=== PATIENT | female | born 1985 | race Caucasian/White ===

== ENCOUNTER 2022-01-06 10:41 | Day surgery (SDC) | payer BC ==
[2022-01-06] MEDS ORDERED: BUPIVACAINE 0.5% VIAL IJ ONE (10:42)
[2022-01-06] MEDS ORDERED: Depo-Medrol 40 MG/ML IM ONE (10:42)
[2022-01-06] MEDS ORDERED: Lactated Ringers 1,000 ML IV ONE ×2 (12:04→13:15)
[2022-01-06] MEDS ORDERED: DIPRIVAN 200 MG/20 ML IV ONE (12:31)
--- NOTE | 2022-01-06 14:04 | XRAY ---
Indication: Left SI joint injection. Intraoperative fluoroscopy provided for 26 seconds. 2 digital spot image submitted for interpretation demonstrates posterior needle tip projecting over the inferior left SI joint. Correlate with intraoperative findings/report.
--- NOTE | 2022-01-06 14:39 | XRAY ---
26 seconds fluoroscopy time in surgery for injection of the left SI joint.
== END 2022-01-06 12:55 | disposition home or self-care (01) ==
LOC: SDC-PAIN 10:41
PROVIDERS: ATTEND Psychiatry & Neurology Pain Medicine
DX: M46.1 Sacroiliitis, not elsewhere classified (principal); Z79.899 Other long term (current) drug therapy
CPT/HCPCS: 27096; 72100; 77002; J1030; J2704; G0260

== ENCOUNTER 2022-01-27 14:06 | Day surgery (SDC) | payer BC ==
[2022-01-27] MEDS ORDERED: Xylocaine 1% Vial 30 ML PF IJ ONE (14:07)
[2022-01-27] MEDS ORDERED: Depo-Medrol 40 MG/ML IM ONE (14:07)
[2022-01-27] MEDS ORDERED: Decadron 4 MG INJ IV ONE (14:07)
[2022-01-27] MEDS ORDERED: Sodium Chloride 0.9(Preservative Free) 10 ML IJ ONE (14:07)
[2022-01-27] MEDS ORDERED: Lactated Ringers 1,000 ML IV ONE (15:52)
[2022-01-27] MEDS ORDERED: DIPRIVAN 200 MG/20 ML IV ONE (16:18)
--- NOTE | 2022-01-27 19:05 | XRAY ---
Indication: Left L4-S1 transforaminal HALLIE. Intraoperative fluoroscopy provided for 26 seconds. 3 digital spot image submitted for interpretation demonstrates posterior needle tips projecting over the expected left L4 and L5 nerve roots. Small amount of contrast injected for needle tip placement. Correlate with intraoperative findings/report.
--- NOTE | 2022-01-27 19:06 | XRAY ---
Indication: Left piriformis injection. Intraoperative fluoroscopy provided for 6 seconds. Single digital spot image submitted for interpretation demonstrates posterior needle tip projecting over the left piriformis muscle. Small amount of contrast injected for needle tip placement. Correlate with intraoperative findings/report.
--- NOTE | 2022-01-28 08:46 | XRAY ---
6 seconds of fluoroscopy was used in surgery for a left piriformis injection.
--- NOTE | 2022-01-28 08:47 | XRAY ---
26 seconds of fluoroscopy was used in surgery for a left L4-S1 transforaminal HALLIE.
== END 2022-01-27 16:50 | disposition home or self-care (01) ==
LOC: SDC-PAIN 14:06
PROVIDERS: ATTEND Psychiatry & Neurology Pain Medicine
DX: M54.16 Radiculopathy, lumbar region (principal); M79.18 Myalgia, other site; Z79.899 Other long term (current) drug therapy
CPT/HCPCS: 20552; 64483; 64484; 72020; 72100; 77002; 77003; J1030; J1100; J2001; J2704; Q9966

== ENCOUNTER 2022-03-25 07:43 | Day surgery (SDC) | payer BC ==
[2022-03-25] MEDS ORDERED: Marcaine Mpf 0.5% Vial 30 Ml IJ ONE (07:44)
[2022-03-25] MEDS ORDERED: Depo-Medrol 40 MG/ML IM ONE (07:44)
[2022-03-25] MEDS ORDERED: Lactated Ringers 1,000 ML IV ONE (09:02)
[2022-03-25] MEDS ORDERED: DIPRIVAN 200 MG/20 ML IV ONE (09:12)
--- NOTE | 2022-03-25 10:13 | XRAY ---
Indication: Left hip and greater trochanter bursa injection Intraoperative fluoroscopy provided for 23 seconds. 2 digital spot image submitted for interpretation demonstrates needle tip projecting lateral to the left femur neck. Second needle tip lateral to the greater trochanter. Small amount of contrast injected for both needle tip placement. Correlate with intraoperative findings/report.
--- NOTE | 2022-03-25 11:26 | XRAY ---
23 seconds of fluoroscopy was used in surgery for a left intra-articular and greater trochanteric bursa injections.
== END 2022-03-25 09:35 | disposition home or self-care (01) ==
LOC: SDC-PAIN 07:43
PROVIDERS: ATTEND Psychiatry & Neurology Pain Medicine
DX: M16.12 Unilateral primary osteoarthritis, left hip (principal); Z79.899 Other long term (current) drug therapy
CPT/HCPCS: 20610; 73502; 77002; J1030; J2704; Q9966

== ENCOUNTER 2022-04-21 07:48 | Day surgery (SDC) | payer BC ==
[2022-04-21] MEDS ORDERED: Decadron 4 MG INJ IV ONE (07:49)
[2022-04-21] MEDS ORDERED: XYLOCAINE-MPF 1% 5ML SDV IJ ONE (07:49)
[2022-04-21] MEDS ORDERED: Depo-Medrol 40 MG/ML IM ONE (07:49)
[2022-04-21] MEDS ORDERED: Sodium Chloride 0.9(Preservative Free) 10 ML IJ ONE (07:49)
[2022-04-21] MEDS ORDERED: DIPRIVAN 200 MG/20 ML IV ONE (08:44)
[2022-04-21] MEDS ORDERED: Xylocaine-Mpf 2% 5 Ml Vial ONE (08:47)
[2022-04-21] MEDS ORDERED: Lactated Ringers 1,000 ML IV ONE (09:06)
--- NOTE | 2022-04-21 09:46 | XRAY ---
Indication: Left piriformis injection. Intraoperative fluoroscopy provided for 24 seconds. Single digital spot image submitted for interpretation demonstrates posterior needle tip projecting over the left piriformis muscle. Small amount of contrast injected for needle tip placement. Correlate with intraoperative findings/report.
--- NOTE | 2022-04-21 09:48 | XRAY ---
Indication: Left L4-S1 transforaminal HALLIE. Intraoperative fluoroscopy provided for 25 seconds. 4 digital spot image submitted for interpretation demonstrates posterior needle tips projecting over the expect the left L4 and L5 nerve roots. Small amount of contrast injected for needle tip placement. Correlate with intraoperative findings/report.
--- NOTE | 2022-04-21 12:26 | XRAY ---
25 seconds of fluoroscopy was used in surgery for a left L4-S1 transforaminal HALLIE.
--- NOTE | 2022-04-21 12:26 | XRAY ---
24 seconds of fluoroscopy was used in surgery for a left piriformis injection.
== END 2022-04-21 09:11 | disposition home or self-care (01) ==
LOC: SDC-PAIN 07:48
PROVIDERS: ATTEND Psychiatry & Neurology Pain Medicine
DX: M54.16 Radiculopathy, lumbar region (principal); M79.18 Myalgia, other site; Z79.899 Other long term (current) drug therapy
CPT/HCPCS: 20552; 64483; 64484; 72020; 72100; 77002; 77003; J1030; J1100; J2704; Q9966

== ENCOUNTER 2022-06-30 13:46 | Day surgery (SDC) | payer BC ==
[2022-06-30] MEDS ORDERED: Sodium Chloride 0.9(Preservative Free) 10 ML IJ ONE (13:47)
[2022-06-30] MEDS ORDERED: Depo-Medrol 40 MG/ML IM ONE (13:47)
[2022-06-30] MEDS ORDERED: Xylocaine 1% Vial 30 ML PF IJ ONE (13:47)
[2022-06-30] MEDS ORDERED: DIPRIVAN 200 MG/20 ML IV ONE (14:48)
[2022-06-30] MEDS ORDERED: Lactated Ringers 1,000 ML IV ONE (15:32)
--- NOTE | 2022-06-30 17:35 | XRAY ---
Indication: L3-L4 lumbar HALLIE. Intraoperative fluoroscopy provided for 14 seconds. 2 digital spot image submitted for interpretation demonstrates midline posterior needle tip projecting just posterior to L3-L4 interspace. Small amount of contrast injected for needle tip placement. Correlate with intraoperative findings/report.
--- NOTE | 2022-06-30 17:45 | XRAY ---
14 seconds fluoroscopy time in surgery for L3-L4 lumbar HALLIE.
== END 2022-06-30 15:10 | disposition home or self-care (01) ==
LOC: SDC-PAIN 13:46
PROVIDERS: ATTEND Psychiatry & Neurology Pain Medicine
DX: M54.16 Radiculopathy, lumbar region (principal); Z79.899 Other long term (current) drug therapy
CPT/HCPCS: 62323; 72100; 77003; J1030; J2001; J2704; Q9966

== ENCOUNTER 2022-11-17 10:47 | Day surgery (SDC) | payer BC ==
[2022-11-17] MEDS ORDERED: Depo-Medrol 40 MG/ML IM ONE (10:48)
[2022-11-17] MEDS ORDERED: Sodium Chloride 0.9(Preservative Free) 10 ML IJ ONE (10:48)
[2022-11-17] MEDS ORDERED: Xylocaine-Mpf 2% 5 Ml Vial ONE (12:51)
[2022-11-17] MEDS ORDERED: DIPRIVAN 200 MG/20 ML IV ONE ×2 (12:51→13:01)
[2022-11-17] MEDS ORDERED: Lactated Ringers 1,000 ML IV ONE (14:33)
--- NOTE | 2022-11-17 14:34 | XRAY ---
Indication: Caudal HALLIE. Intraoperative fluoroscopy provided for 32 seconds. 9 digital spot images submitted for interpretation demonstrates caudal needle tip projecting mid sacrum. Small amount of contrast injected for needle tip placement. Correlate with intraoperative findings/report.
--- NOTE | 2022-11-17 15:14 | XRAY ---
32 seconds of fluoroscopy was used in surgery for a caudal HALLIE.
== END 2022-11-17 13:20 | disposition home or self-care (01) ==
LOC: SDC-PAIN 10:47
PROVIDERS: ATTEND Psychiatry & Neurology Pain Medicine
DX: M54.16 Radiculopathy, lumbar region (principal)
CPT/HCPCS: 62323; 72220; 77003; J1030; J2704; Q9966

== ENCOUNTER 2023-10-19 14:57 | Day surgery (SDC) | payer BC ==
[2023-10-19] MEDS ORDERED: Sodium Chloride 0.9(Preservative Free) 10 ML IJ ONE (14:58)
[2023-10-19] MEDS ORDERED: Depo-Medrol 40 MG/ML IM ONE (14:58)
[2023-10-19] MEDS ORDERED: XYLOCAINE-MPF 1% 5ML SDV IJ ONE (14:58)
[2023-10-19] MEDS ORDERED: DIPRIVAN 200 MG/20 ML IV ONE ×2 (16:31→16:38)
[2023-10-19] MEDS ORDERED: Lactated Ringers 1,000 ML IV ONE (17:00)
--- NOTE | 2023-10-19 17:16 | XRAY ---
Indication: Caudal HALLIE. Intraoperative fluoroscopy provided for 22 seconds. 4 digital spot image submitted for interpretation demonstrates caudal needle tip projecting mid sacrum. Small amount of contrast injected for needle tip placement. Correlate with intraoperative findings/report.
--- NOTE | 2023-10-19 17:23 | XRAY ---
22 seconds of fluoroscopy was used in surgery for a caudal HALLIE.
== END 2023-10-19 17:00 | disposition home or self-care (01) ==
LOC: SDC-PAIN 14:57
PROVIDERS: ATTEND Psychiatry & Neurology Pain Medicine
DX: M54.16 Radiculopathy, lumbar region (principal)
CPT/HCPCS: 62323; 72220; 77003; J1030; J2704; Q9966

== ENCOUNTER 2023-12-15 07:27 | Day surgery (SDC) | payer BC ==
[2023-12-15] MEDS ORDERED: LIDOCAINE HCL 2% 100 MG/5 ML IJ ONE (07:28)
[2023-12-15] MEDS ORDERED: Depo-Medrol 40 MG/ML IM ONE (07:28)
[2023-12-15] MEDS ORDERED: DIPRIVAN 200 MG/20 ML IV ONE ×2 (08:47→08:53)
--- NOTE | 2023-12-15 10:53 | XRAY ---
Indication: Bilateral L4-S1 MBB. Intraoperative fluoroscopy provided for 12 seconds. Single digital spot image submitted for interpretation demonstrates posterior needle tips projecting over the expected left and right L4-S1 nerve roots. Correlate with intraoperative findings/report.
--- NOTE | 2023-12-15 11:19 | XRAY ---
12 seconds of fluoroscopy was used in surgery for a bilateral L4-S1 MBB.
[2023-12-15] MEDS ORDERED: Lactated Ringers 1,000 ML IV ONE (12:03)
== END 2023-12-15 09:14 | disposition home or self-care (01) ==
LOC: SDC-PAIN 07:27
PROVIDERS: ATTEND Psychiatry & Neurology Pain Medicine
DX: M47.816 Spondylosis without myelopathy or radiculopathy, lumbar region (principal)
CPT/HCPCS: 64493; 64494; 72020; 77002; J1030; J2704

== ENCOUNTER 2024-01-11 07:46 | Day surgery (SDC) | payer BC ==
[2024-01-11] MEDS ORDERED: BUPIVACAINE 0.5% VIAL IJ ONE (07:47)
[2024-01-11] MEDS ORDERED: DIPRIVAN 200 MG/20 ML IV ONE (09:06)
[2024-01-11] MEDS ORDERED: Lactated Ringers 1,000 ML IV ONE (09:57)
--- NOTE | 2024-01-11 10:39 | XRAY ---
15 seconds of fluoroscopy was used in surgery for a bilateral L4-S1 MBB.
--- NOTE | 2024-01-12 14:55 | XRAY ---
15 seconds of fluoroscopy was used in surgery for a bilateral L4-S1 MBB.
== END 2024-01-11 09:32 | disposition home or self-care (01) ==
LOC: SDC-PAIN 07:46
PROVIDERS: ATTEND Psychiatry & Neurology Pain Medicine
DX: M47.816 Spondylosis without myelopathy or radiculopathy, lumbar region (principal)
CPT/HCPCS: 64493; 64494; 72020; 77002; J2704

== ENCOUNTER 2024-02-08 12:46 | Day surgery (SDC) | payer BC ==
[2024-02-08] MEDS ORDERED: Depo-Medrol 40 MG/ML IM ONE (12:47)
[2024-02-08] MEDS ORDERED: BUPIVACAINE 0.5% VIAL IJ ONE (12:47)
[2024-02-08] MEDS ORDERED: LIDOCAINE HCL 1% 50 MG/5 ML VL PF IJ ONE (12:47)
[2024-02-08] MEDS ORDERED: DIPRIVAN 200 MG/20 ML IV ONE (14:03)
[2024-02-08] MEDS ORDERED: Lactated Ringers 1,000 ML IV ONE (14:06)
--- NOTE | 2024-02-08 14:50 | XRAY ---
Indication: Left L4-S1 RFA. Intraoperative fluoroscopy provided for 17 seconds. 4 digital spot image submitted for interpretation demonstrates posterior needle tips projecting over expected left L4-S1 nerve roots. Correlate with intraoperative findings/report.
--- NOTE | 2024-02-08 17:39 | XRAY ---
17 seconds of fluoroscopy was used in surgery for a left L4-S1 RFA.
== END 2024-02-08 14:35 | disposition home or self-care (01) ==
LOC: SDC-PAIN 12:46
PROVIDERS: ATTEND Psychiatry & Neurology Pain Medicine
DX: M47.816 Spondylosis without myelopathy or radiculopathy, lumbar region (principal)
CPT/HCPCS: 64635; 64636; 72100; 77002; J1030; J2001; J2704

== ENCOUNTER 2024-02-15 14:04 | Day surgery (SDC) | payer BC ==
[2024-02-15] MEDS ORDERED: Depo-Medrol 40 MG/ML IM ONE (14:05)
[2024-02-15] MEDS ORDERED: LIDOCAINE HCL 1% 50 MG/5 ML VL PF IJ ONE (14:05)
[2024-02-15] MEDS ORDERED: BUPIVACAINE 0.5% VIAL IJ ONE (14:05)
[2024-02-15] MEDS ORDERED: Lactated Ringers 1,000 ML IV ONE (15:40)
[2024-02-15] MEDS ORDERED: DIPRIVAN 200 MG/20 ML IV ONE ×2 (15:48→16:06)
--- NOTE | 2024-02-15 16:33 | XRAY ---
Indication: Right L4-S1 RFA. Intraoperative fluoroscopy provided for 21 seconds. 3 digital spot image submitted for interpretation demonstrates posterior needle tips projecting over the expected right L4-S1 nerve roots. Correlate with intraoperative findings/report.
--- NOTE | 2024-02-15 16:37 | XRAY ---
21 seconds of fluoroscopy were used in surgery for a right L4-S1 RFA.
== END 2024-02-15 16:23 | disposition home or self-care (01) ==
LOC: SDC-PAIN 14:04
PROVIDERS: ATTEND Psychiatry & Neurology Pain Medicine
DX: M47.816 Spondylosis without myelopathy or radiculopathy, lumbar region (principal)
CPT/HCPCS: 64635; 64636; 72100; 77002; J1010; J2001; J2704; J1030

== ENCOUNTER 2024-07-25 11:39 | Day surgery (SDC) | payer BC ==
[2024-07-25] MEDS ORDERED: Depo-Medrol 40 MG/ML IM ONE (11:40)
[2024-07-25] MEDS ORDERED: Xylocaine-Mpf 2% 5 Ml Vial IJ ONE (11:40)
[2024-07-25] MEDS ORDERED: DIPRIVAN 200 MG/20 ML IV ONE ×2 (13:41→13:49)
[2024-07-25] MEDS ORDERED: Lactated Ringers 1,000 ML IV ONE (13:49)
--- NOTE | 2024-07-25 19:54 | XRAY ---
Indication: Bilateral L1-L3 MBB Intraoperative fluoroscopy provided for 18 seconds. Single digital spot image submitted for interpretation demonstrates posterior needle tips projecting over the expected left and right L1-L3 nerve roots. Correlate with intraoperative findings/report.
--- NOTE | 2024-07-25 20:21 | XRAY ---
18 seconds of fluoroscopy was used in surgery for a bilateral L1-L3 MBB.
== END 2024-07-25 14:18 ==
LOC: SDC-PAIN 11:39
PROVIDERS: ATTEND Psychiatry & Neurology Pain Medicine
DX: M47.816 Spondylosis without myelopathy or radiculopathy, lumbar region (principal)
CPT/HCPCS: 64493; 64494; 72020; 77002; J2704

== ENCOUNTER 2024-09-05 12:03 | Day surgery (SDC) | payer BC ==
[2024-09-05] MEDS ORDERED: Depo-Medrol 40 MG/ML IM ONE (12:04)
[2024-09-05] MEDS ORDERED: BUPIVACAINE 0.5% VIAL IJ ONE (12:04)
[2024-09-05] MEDS ORDERED: DIPRIVAN 200 MG/20 ML IV ONE (14:00)
--- NOTE | 2024-09-05 16:20 | XRAY ---
Indication: Bilateral L1-L3 MBB. Intraoperative fluoroscopy provided for 8 seconds. Single digital spot image submitted for interpretation demonstrates posterior needle tips projecting over the expected left and right L1-L3 nerve roots. Correlate with intraoperative findings/report.
--- NOTE | 2024-09-05 16:30 | XRAY ---
8 seconds of fluoroscopy was used in surgery for a bilateral L1-L3 MBB.
== END 2024-09-05 14:32 | disposition home or self-care (01) ==
LOC: SDC-PAIN 12:03
PROVIDERS: ATTEND Psychiatry & Neurology Pain Medicine
DX: M47.816 Spondylosis without myelopathy or radiculopathy, lumbar region (principal)
CPT/HCPCS: 64490; 64493; 72020; 77002; J2704

== ENCOUNTER 2024-09-26 07:03 | Day surgery (SDC) | payer BC ==
[2024-09-26] MEDS ORDERED: Depo-Medrol 40 MG/ML IM ONE (07:04)
[2024-09-26] MEDS ORDERED: LIDOCAINE HCL 1% AMPUL 5 ML IJ ONE (07:04)
[2024-09-26] MEDS ORDERED: BUPIVACAINE 0.5% VIAL IJ ONE (07:04)
[2024-09-26] MEDS ORDERED: DIPRIVAN 200 MG/20 ML IV ONE (08:02)
--- NOTE | 2024-09-26 12:58 | XRAY ---
Indication: Left L1-L3 RFA. Intraoperative fluoroscopy provided for 20 seconds. 4 digital spot image submitted for interpretation demonstrates posterior needle tips projecting over expected left L1-L3 nerve roots. Correlate with intraoperative findings/report.
--- NOTE | 2024-09-26 13:11 | XRAY ---
20 seconds of fluoroscopy was used in surgery for a left L1-L3 RFA.
== END 2024-09-26 08:42 | disposition home or self-care (01) ==
LOC: SDC-PAIN 07:03
PROVIDERS: ATTEND Psychiatry & Neurology Pain Medicine
DX: M47.816 Spondylosis without myelopathy or radiculopathy, lumbar region (principal)
CPT/HCPCS: 64635; 64636; 72100; 77002; J2704

== ENCOUNTER 2024-10-10 13:21 | Day surgery (SDC) | payer BC ==
[2024-10-10] MEDS ORDERED: LIDOCAINE HCL 1% AMPUL 5 ML IJ ONE (13:22)
[2024-10-10] MEDS ORDERED: BUPIVACAINE 0.5% VIAL IJ ONE (13:22)
[2024-10-10] MEDS ORDERED: Depo-Medrol 40 MG/ML IM ONE (13:22)
[2024-10-10] MEDS ORDERED: DIPRIVAN 200 MG/20 ML IV ONE ×2 (15:00→15:08)
--- NOTE | 2024-10-10 18:58 | XRAY ---
Indication: Right L1-L3 RFA. Intraoperative fluoroscopy provided for 19 seconds. 5 digital spot image submitted for interpretation demonstrates posterior needle tips projecting over the expected right L1-L3 nerve roots. Correlate with intraoperative findings/report.
--- NOTE | 2024-10-10 19:25 | XRAY ---
19 seconds of fluoroscopy was used in surgery for a right L1-L3 RFA.
== END 2024-10-10 15:35 | disposition home or self-care (01) ==
LOC: SDC-PAIN 13:21
PROVIDERS: ATTEND Psychiatry & Neurology Pain Medicine
DX: M47.816 Spondylosis without myelopathy or radiculopathy, lumbar region (principal)
CPT/HCPCS: 64635; 64636; 72100; 77002; J2704